=== PATIENT | female | born 1990 | race Caucasian/White ===

== ENCOUNTER 2016-11-08 04:10 | Inpatient (IN) | payer OTHER ==
[~2016-11-08] VITALS: Ht 157.5 cm; Wt 98.9 kg
[2016-11-08] MEDS ORDERED: OXYTOCIN/NORMAL SALINE 1,000 ML IV SCH (04:59)
[2016-11-08] MEDS ORDERED: LR 500 ML IV ONE ×2 (04:59→14:31)
[2016-11-08] MEDS ORDERED: NALBUPHINE HCL 10 MG/ML AMP IVP PRN (05:00)
[2016-11-08] MEDS ORDERED: TERBUTALINE SULFATE 1 MG/ML VIAL SUBCUT ONE (05:00)
[2016-11-08 05:30] LABS: BASOPHILS % (AUTO) 0.1 % (0.0-2.0); EOSINOPHILS # (AUTO) 0.1 K/uL (0.0-0.4); EOSINOPHILS % (AUTO) 0.8 % (0.0-4.0); HEMATOCRIT 37.5 % (36-48); HEMOGLOBIN 12.7 g/dL (12.0-16.0); LYMPHOCYTES # (AUTO) 2.1 K/uL (1.0-5.5); LYMPHOCYTES % (AUTO) 18.7 % (20.5-51.5); MEAN CORPUSCULAR HEMOGLOBIN 30 pg (27-31); MEAN CORPUSCULAR HGB CONC 34 % (32-36); MEAN CORPUSCULAR VOLUME 89 fL (79.0-98.0); MONOCYTES # (AUTO) 0.6 K/uL (0.0-1.0); MONOCYTES % (AUTO) 5.7 % (1.7-9.3); NEUTROPHILS # (AUTO) 8.2 K/uL (1.8-7.7); NEUTROPHILS % (AUTO) 74.7 % (40.0-70.0); PLATELET COUNT (AUTO) 220 K/uL (130-430); RED BLOOD CELL COUNT(AUTO) 4.21 MIL/uL (4.2-6.2); RED CELL DISTRIBUTION WIDTH 14.4 % (9.0-15.0)
[2016-11-08] MEDS: LR 1,000 ML IV SCH (05:43)
[2016-11-08 05:49] VITALS: BP 131/84; PULSE 93; RESP 20; TEMP 98.5
[2016-11-08] MEDS ORDERED: fentaNYL CITRATE/PF 100 MCG/2 ML AMP ONE (14:05)
[2016-11-08] MEDS ORDERED: FENT2mCg/mL-ROPIVA0.2%/NS EPID 150 ML EP ONE (14:06)
[2016-11-08] MEDS ORDERED: FENT2mCg/mL-ROPIVA0.2%/NS EPID 150 ML EP SCH (14:45)
[2016-11-08] MEDS ORDERED: ePHEDrine sulfate 50 MG/ML VIAL IVP PRN (14:45)
[2016-11-08] MEDS ORDERED: fentaNYL CITRATE/PF 100 MCG/2 ML AMP EP ONE (14:45)
[2016-11-09] MEDS: LR 1,000 ML IV SCH (00:41)
[2016-11-09] MEDS ORDERED: IBUPROFEN 800 MG TABLET ONE (03:36)
[2016-11-09] MEDS ORDERED: OXYTOCIN/NORMAL SALINE 1,000 ML IV ONE (03:43)
[2016-11-09] MEDS ORDERED: OXYTOCIN/NORMAL SALINE 1,000 ML IV SCH (03:43)
[2016-11-09] MEDS ORDERED: GLYCERIN/WITCH HAZEL (TUCKS PADS) TP PRN (03:45)
[2016-11-09] MEDS ORDERED: DERMOPLAST SPRAY TP PRN (03:45)
[2016-11-09] MEDS ORDERED: HYDROCORTISONE 0.5%, 28.35 GM TOPICAL CREAM TP PRN (03:45)
[2016-11-09] MEDS ORDERED: OXYCODONE/ACETAMINOPHEN 5-325 TABLET PO PRN ×2 (03:45)
[2016-11-09] MEDS ORDERED: RHO(D) IMMUNE GLOBULIN/MALTOSE 1500 UNITS/1.3 ML (WINHRO) IM PRN (03:45)
[2016-11-09] MEDS ORDERED: LANOLIN 7 GM OINT. TP PRN (03:45)
[2016-11-09] MEDS ORDERED: DOCUSATE SODIUM 100 MG CAPSULE PO PRN (03:45)
[2016-11-09] MEDS ORDERED: METHYLERGONOVINE MALEATE 0.2 MG TABLET PO PRN (03:45)
[2016-11-09] MEDS ORDERED: SENNOSIDES/DOCUSATE SODIUM 1 TAB TABLET(SENOKOT-S) PO PRN (03:45)
[2016-11-09] MEDS ORDERED: ANUSOL 1 EA SUPP.RECT (PREPARATION H) RC PRN (03:45)
[2016-11-09] MEDS: IBUPROFEN 800 MG TABLET PO PRN ×3 (12:20→23:36)
[2016-11-09] MEDS ORDERED: ROPIVACAINE 40 MG/20 ML AMP EP ONE (14:09)
[2016-11-10] MEDS: IBUPROFEN 800 MG TABLET PO PRN (06:24)
[2016-11-10 07:04] LABS: HEMATOCRIT 29.1 % (36-48); HEMOGLOBIN 9.7 g/dL (12.0-16.0)
[2016-11-10] MEDS ORDERED: LIDOCAINE PF 1% 30ML(POUR BTL) INJ ONE (14:16)
[2016-11-10] MEDS ORDERED: MINERAL OIL 30 ML UDC PO ONE (14:16)
== END 2016-11-10 13:50 | disposition home or self-care (01) | DRG 775 ==
LOC: SPU 04:10
PROVIDERS: ADMIT Obstetrics & Gynecology; ATTEND Obstetrics & Gynecology
PROC: 0HQ9XZZ Repair Perineum Skin, External Approach (ICD-10-PCS; principal; 2016-11-08)
PROC: 10E0XZZ Delivery of Products of Conception, External Approach (ICD-10-PCS; 2016-11-08)
PROC: 3E0S3CZ (ICD-10-PCS; 2016-11-08)
PROC: 00HU33Z Insertion of Infusion Device into Spinal Canal, Percutaneous Approach (ICD-10-PCS; 2016-11-08)
DX: O42.92 Full-term premature rupture of membranes, unspecified as to length of time between rupture and onset of labor (principal); Z37.0 Single live birth; O70.0 First degree perineal laceration during delivery; Z3A.38 38 weeks gestation of pregnancy
CPT/HCPCS: 36415; 85018-TC; 85025; 86886; 86900; 86901; J2001; J2590; J2795; J3010; J7120